=== PATIENT | male | born 1935 | race Caucasian/White ===

== ENCOUNTER 2020-03-01 07:16 | Outpatient (REF) | payer MEDICARE, BC, SELFPAY | END 2020-03-01 07:17 | disposition home or self-care (01) | LOC: HO.LAB 07:16 | PROVIDERS: Visit Provider Internal Medicine | DX: Z20.828 Contact with and (suspected) exposure to other viral communicable diseases (principal) | CPT/HCPCS: C9803; U0003 ==

== ENCOUNTER → 2020-08-07 10:45 | Outpatient (BNVA) | payer MEDICARE, BC, SELFPAY | PROVIDERS: PCP Internal Medicine; Visit Provider Urology | DX: N40.1 Benign prostatic hyperplasia with lower urinary tract symptoms (principal); N13.8 Other obstructive and reflux uropathy | CPT/HCPCS: 99212 ==

== ENCOUNTER → 2021-08-11 09:47 | Outpatient (BNVA) | payer MEDICARE, BC, SELFPAY | PROVIDERS: PCP Internal Medicine; Visit Provider Urology | DX: Z13.89 Encounter for screening for other disorder (principal) | CPT/HCPCS: Q3014 ==

== ENCOUNTER → 2022-08-10 10:46 | Outpatient (BNVA) | payer MEDICARE, BC, SELFPAY | PROVIDERS: PCP Internal Medicine; Visit Provider Urology | DX: R97.20 Elevated prostate specific antigen [PSA] (principal); N40.1 Benign prostatic hyperplasia with lower urinary tract symptoms; N13.8 Other obstructive and reflux uropathy; Z79.01 Long term (current) use of anticoagulants; Z79.899 Other long term (current) drug therapy | CPT/HCPCS: 99212 ==

== ENCOUNTER 2023-09-27 09:46 | Outpatient (AMB) | payer MEDICARE, BC, SELFPAY ==
--- NOTE | 2023-09-27 10:06 | MHC.OFFVIS ---
Intake Visit Reasons: 1Y PSA(SET) Intake Note: Patient is Present for Follow Up PSA Urology Medication: Finasteride Antibiotic Allergies: None Blood Thinners:Apixaban Allergies No Known Allergies Allergy (Verified 09/27/23 10:06) Medication List - Last Reconciled 09/27/23 by Sourav Goldman MD allopurinol 300 mg PO DAILY apixaban 2.5 mg PO BID blood pressure test kit-large As directed finasteride 5 mg PO DAILY 90 days levothyroxine 125 mcg PO DAILY olmesartan 20 mg PO DAILY rosuvastatin 20 mg PO BEDTIME spironolactone 25 mg PO DAILY HPI Comments Details: Duncan GONZALEZ is a very pleasant male. He is a patient of Dr Persaud. He is seen for the following urologic conditions. - lower urinary tract symptoms Yearly review Remains on finasteride WOLF tight sphincter, 1+ prostate Elevated PSA/Abnormal WOLF: He presents for further evaluation of elevated PSA Current management is observation. Laboratory investigations include a total PSA evaluation 08/11 4.5 02/10 5.1 08/12 7.8 - 08/13 1.6, 08/14 1.5, 08/15 1.9, 09/15 2.1 Individualized Prostate Cancer Risk Calculator 5-10% high risk, Would like to continue with observation and understands and accepts the risks of a possible delay in diagnosis, Discussed use of 5AR to help differentiate prostate cancer from benign disease. He would like to try this and understands the small risk associated with a delay in diagnosis. Overall symptoms are mild. Therapeutic plan will be follow PSA in 12 months FORMERLY [facility] Medical History Hyperlipidemia Thyroid disease Benign prostatic hyperplasia with lower urinary tract symptoms Feeling of incomplete bladder emptying Elevated PSA Surgical History No pertinent past surgical history Family History Father No problems noted. Mother No problems noted. Social History Alcohol intake: never Review of Systems Const Denies chills and Denies fever(s) Card Reports no additional complaints and Denies syncope Resp Denies cough GI Denies abdominal pain and Denies heartburn Reports as per HPI and Denies change in libido Neuro Denies syncope Psych Denies change in libido Endo Denies change in libido Physical Exam Const General: cooperative, healthy appearing, comfortable and no acute distress Orientation/consciousness: patient oriented x3 HEENT Face and sinus: Yes normal facial exam Mouth: moist mucous membranes Neck Neck: Yes normal visual inspection, Yes full ROM and Yes trachea midline Chest Chest palpation & inspection: normal inspection of the chest Resp Effort & Inspection: normal respiratory effort, able to speak in complete sentences and no respiratory distress GI Inspection: Yes normal to inspection Back/Spine/Pelvis Cervical Spine: normal cervical lordosis Thoracic/Lumbar Spine: thoracic and lumbar spine normal to inspection Skin General skin exam: no rashes or lesions noted Neuro General: patient oriented x3, gait normal, tone normal and moves all extremities Extrem General: Yes normal to inspection and Yes capillary refill normal Assessment & Plan Assessment & Plan (1) BPH w urinary obs/LUTS: Code(s): N40.1 - Benign prostatic hyperplasia with lower urinary tract symptoms; N13.8 - Other obstructive and reflux uropathy Category: Medical (2) Elevated PSA: Code(s): R97.20 - Elevated prostate specific antigen [PSA] Category: Medical Plan Twelve month follow-up PSA Orders: Orders Prostate Specific Antigen 364 Days N13.8 - Other obstructive and reflux uropathy, N40.1 - Benign prostatic hyperplasia with lower urinary tract symptoms Patient Instructions: Imaging studies, laboratory and physical exam results were discussed and reviewed in detail. No major barriers to patient understanding were identified. An opportunity to ask questions regarding the treatment plan was provided. All questions were answered. The patient expressed understanding and agreement with the above treatment plan. The patient is aware they should contact our office by phone for worsening of their current condition or the appearance of new urologic symptoms. Compliance is encouraged with any medications and followup testing that is ordered. It is a privilege to participate in the urologic care of your patient. If you have any questions or concerns regarding treatment for the above conditions, or other urologic issues, please do not hesitate to contact me. The office telephone contact is [phone]. This note is constructed using voice recognition software. While every effort has been made to ensure accuracy paint pourer errors may have been included. Yours sincerely, Dr Sourav Goldman MD, [facility] - Urology Providers of Expert, Compassionate Care for the Genitourinary System Coding Level of Care Code Est Pt Level 4 (05271) Diagnoses BPH w urinary obs/LUTS N40.1; N13.8 Elevated PSA R97.20
== END 2023-09-27 10:41 | disposition home or self-care (01) ==
LOC: HO.HUSH 09:46
PROVIDERS: PCP Internal Medicine; Visit Provider Urology
DX: N40.1 Benign prostatic hyperplasia with lower urinary tract symptoms (principal); N13.8 Other obstructive and reflux uropathy; R97.20 Elevated prostate specific antigen [PSA]
CPT/HCPCS: 99213

== ENCOUNTER → 2023-09-27 09:46 | Outpatient (BNVA) | payer MEDICARE, BC, SELFPAY | PROVIDERS: PCP Internal Medicine; Visit Provider Urology | DX: N40.1 Benign prostatic hyperplasia with lower urinary tract symptoms (principal); N13.8 Other obstructive and reflux uropathy; R97.20 Elevated prostate specific antigen [PSA] | CPT/HCPCS: 99212 ==

== ENCOUNTER 2024-09-27 09:56 | Outpatient (AMB) | payer MEDICARE, BC, SELFPAY ==
--- NOTE | 2024-09-27 10:01 | A.OFFVIS_ITS ---
Intake Visit Reasons: 1y/PSA Intake Note: Patient is Present for 1Y Follow Up PSA Urology Medication: Finasteride,ALLOPURINOL Antibiotic Allergies: None Blood Thinners:Apixaban Executive Assistant To General Counsel Required: No Allergies No Known Allergies Allergy (Verified 09/27/24 10:03) HPI Comments Details: Duncan GONZALEZ is a very pleasant male. He is a patient of Dr Persaud. He is seen for the following urologic conditions. 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 - Prostate enlargement discussed, impacting urinary function. - Finasteride used to manage urinary stream and prostate size with noted effectiveness. - Urinary frequency tied to meal timings, indicating regular bowel movements. Elevated PSA/Abnormal WOLF: He presents for further evaluation of elevated PSA Current management is observation. Laboratory investigations include a total PSA evaluation 08/11 4.5 02/10 5.1 08/12 7.8 - 08/13 1.6, 08/14 1.5, 08/15 1.9, 09/15 2.1, 10/17 2.4 Individualized Prostate Cancer Risk Calculator 5-10% high risk, Would like to continue with observation and understands and accepts the risks of a po ssible delay in diagnosis, Discussed use of 5AR to help differentiate prostate cancer from benign disease. He would like to try this and understands the small risk associated with a delay in diagnosis. Overall symptoms are mild. Therapeutic plan will be follow PSA in 12 months FORMERLY [facility] Medical History Hyperlipidemia Thyroid disease Benign prostatic hyperplasia with lower urinary tract symptoms Feeling of incomplete bladder emptying Elevated PSA Surgical History No pertinent past surgical history Family History Father No problems noted. Mother No problems noted. Social History Alcohol intake: never Review of Systems Const Denies chills and Denies fever(s) Card Reports no additional complaints and Denies syncope Resp Denies cough GI Denies abdominal pain and Denies heartburn Reports as per HPI and Denies change in libido Neuro Denies syncope Psych Denies change in libido Endo Denies change in libido Physical Exam Const General: cooperative, healthy appearing, comfortable and no acute distress Orientation/consciousness: patient oriented x3 HEENT Face and sinus: Yes normal facial exam Mouth: moist mucous membranes Neck Neck: Yes normal visual inspection, Yes full ROM and Yes trachea midline Chest Chest palpation & inspection: normal inspection of the chest Resp Effort & Inspection: normal respiratory effort, able to speak in complete sentences and no respiratory distress GI Inspection: Yes normal to inspection Back/Spine/Pelvis Cervical Spine: normal cervical lordosis Thoracic/Lumbar Spine: thoracic and lumbar spine normal to inspection Skin General skin exam: no rashes or lesions noted Neuro General: patient oriented x3, gait normal, tone normal and moves all extremities Extrem General: Yes normal to inspection and Yes capillary refill normal Assessment & Plan Assessment & Plan (1) BPH w urinary obs/LUTS: Code(s): N40.1 - Benign prostatic hyperplasia with lower urinary tract symptoms; N13.8 - Other obstructive and reflux uropathy Category: Medical (2) Elevated PSA: Code(s): R97.20 - Elevated prostate specific antigen [PSA] Category: Medical Plan Plan 1. Ingrown Toenail Post-operative care provided post-surgery. Monitor for healing with focus on pain relief. 2. Sciatic Nerve Pain Manage with physical therapy and pain relief measures to enhance leg mobility and decrease discomfort. 3. Retrograde Ejaculation Continue Finasteride therapy to manage prostatic symptoms, with understanding of benign nature of retrograde ejaculation. Discussion Notes I engaged the patient in a detailed discussion of his recent medical concerns. We reviewed the surgical intervention for the ingrown toenail and the expected post-operative care. For his sciatic nerve pain, we discussed non-invasive management through physical therapy tailored to improve mobility and reduce pain in the affected leg. Concerning retrograde ejaculation, I clarified the physiological reasons behind the condition, attributing it to prostatic enlargement, explaining that while unusual, it is generally harmless. The use of Finasteride was affirmed in managing urinary symptoms effectively. Potential side effects of ongoing treatment were discussed, and the patient expressed understanding and agreement. Patient Instructions - Monitor the surgical site for the ingrown toenail and follow provided wound care instructions. - Engage in recommended exercises or therapy to alleviate sciatic nerve pain. - Continue taking prescribed Finasteride as directed to manage urinary flow effectively. - Recognize the benign nature of retrograde ejaculation and proceed with urin ation as needed. - Contact me if any unusual symptoms or concerns arise. Orders: Orders Prostate Specific Antigen 12 Months R97.20 - Elevated prostate specific antigen [PSA] Patient Instructions: This note is constructed using voice recognition software. While every effort has been made to ensure accuracy chief crew scheduler errors may have been included. Imaging studies, laboratory and physical exam results were discussed and review ed in detail. No major barriers to patient understanding were identified. An opportunity to ask questions regarding the treatment plan was provided. All questions were answered. The patient expressed understanding and agreement with the above treatment plan. The patient is aware they should contact our office by phone for worsening of their current condition or the appearance of new urologic symptoms. Compliance is encouraged with any medications and followup testing that is ordered. It is a privilege to participate in the urologic care of your patient. If you have any questions or concerns regarding treatment for the above conditions, or other urologic issues, please do not hesitate to contact me. The office telephone contact is [phone]. Sincerely, Dr Sourav Goldman MD, [facility] - Urology Compassionate Specialist Care for the Genitourinary System Coding Level of Care Code Est Pt Level 4 (52389) Complex EM visit Add On G2211 Diagnoses BPH w urinary obs/LUTS N40.1; N13.8 Elevated PSA R97.20
--- OUTSIDE RECORDS SUMMARY | 2024-09-27 11:25 | XMS_ITS | Clinical Summary ---
Author Organization [facility] Address [address] [place] [phone] Phone Care Team Providers Care Oil Paint Shader Name Role Phone Jhonathan Persaud MD Primary Care Provider Allergies No known active allergies Medications allopurinol (ZYLOPRIM) 300 MG tablet Take 1 tablet by mouth 1 (one) time each day Active apixaban (ELIQUIS) 2.5 MG tablet Take 1 tablet by mouth 2 (two) times a day Active cholecalciferol (VITAMIN D-3 SUPER STRENGTH) 50 MCG (2000 UT) tablet Take 1 tablet by mouth 1 (one) time each day Active finasteride (PROSCAR) 5 MG tablet Take 1 tablet by mouth 1 (one) time each day Active levothyroxine (SYNTHROID, LEVOTHROID) 125 MCG tablet Take 1 tablet by mouth 1 (one) time each day Active cyanocobalamin 2000 MCG tablet Take 2,000 mcg by mouth 1 (one) time each day Active Flaxseed, Linseed, (Flax Seed Oil) 1000 MG capsule Take 1,000 mg by mouth 1 (one) time each day Active rosuvastatin (CRESTOR) 20 MG tablet TAKE 1 TABLET ONCE DAILY 90 tablet 3 4 Active spironolactone (ALDACTONE) 25 MG tabletIndicatio ns:Hypertension Take 1 tablet (25 mg total) by mouth 1 (one) time each day 90 tablet 3 5 Active spironolactone (ALDACTONE) 25 MG tabletIndicatio ns:Hypertension TAKE 1 TABLET ONCE DAILY 90 tablet 3 4 09/06/19 25 Discontinu ed(Reorder (does not appear on AVS)) Active Problems Problem Noted Date Diagnosed Date Hyperkalemia 03/09/2022 Hypertension 08/25/2020 Stage 3a chronic kidney disease 08/25/2020 Edema 08/25/2020 Obesity 08/25/2020 Gout, not otherwise specified 08/25/2020 Proteinuria, not otherwise specified 08/25/2020 Hematuria, not otherwise specified 08/25/2020 Dyslipidemia 08/25/2020 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 Cyst of kidney 08/25/2020 Obstructive sleep apnea syndrome 08/25/2020 Atrial fibrillation, not otherwise specified 06/2020 Resolved Problems Problem Noted Date Diagnosed Date Resolved Date Acute nontraumatic kidney injury 08/25/2020 03/06/2023 Encounters Date Type Department Care Team Description 09/05/2024 10:40 AM EDT Office Visit [facility] [address] [phone] Chris Sofia MD Stage 3a chronic kidney disease (HCC) (Primary Dx); Secondary hyperaldosteronism (HCC); Proteinuria, not otherwise specified; Hypertension; Hyperkalemia; Hematuria, not otherwise specified; Gout, not otherwise specified; Localized edema; Dyslipidemia; Cyst of kidney; Atrial fibrillation, not otherwise specified (HCC) 09/03/2024 Orders Only [facility] [address] [phone] Chris Sofia MD Stage 3a chronic kidney disease (HCC); Secondary hyperaldosteronism (HCC); Proteinuria, not otherwise specified; Hypertension; Hyperkalemia; Hematuria, not otherwise specified; Gout, not otherwise specified 08/23/2024 Orders Only [facility] [address] [phone] Chris Sofia MD from Last 3 Months Immunizations Immunization Administration Dates Next Due Pneumococcal Conjugate 13-Valent 01/23/2013 Zoster 12/27/2012 Family History Medical History Relation Comments Hypertension Father Hypertension Mother Hypertension Sibling Relation Status Comments Father Mother Sibling Social History Tobacco Use Types Packs/Day Years Used Date Smoking Tobacco: Never Smokeless Tobacco: Never Alcohol Use Standard Drinks/Week Comments No 0 (1 standard drink = 0.6 oz pur e alcohol) Sex and Gender Information Value Date Recorded Sex Assigned at Not on file Legal Sex Male 4:57 PM EST Gender Identity Not on file Sexual Orientation Not on file Last Filed Vital Signs Vital Sign Reading Time Taken Comments Blood Pressure 124/80 09/05/2024 10:25 AM EDT Pulse 88 09/05/2024 10:25 AM EDT Temperature - - Respiratory Rate - - Oxygen Saturation 98% 09/05/2024 10:25 AM EDT Inhaled Oxygen Concentration - - Weight 104 kg (229 lb 8 oz) 09/05/2024 10:25 AM EDT Height 180.3 cm (5' 11 ) 03/06/2024 11:48 AM EST Body Mass Index 32.01 03/06/2024 11:48 AM EST Plan of Treatment Upcoming Encounters Date Type Department Care Team (Late st Contact Info) Description 03/07/2025 11:00 AM EST [facility] [address] [phone] Chris Sofia MD [address] [phone] Health Maintenance Due Date Last Done Comments Pneumococcal Vaccine: 50+ Ye ars (2 of 2 - PPSV23, PCV20, or PCV21) 03/20/2013 01/23/2013 Influenza Vaccine (Season Ended) 2024 Pneumococcal Vaccine: Peds ( 0 to 5 Years) and At-Risk Patients (6 to 49 Years) Discontinued 01/23/2013 Hepatitis B Vaccine Aged Out No longe r eligible based on patient's age to complete this topic Procedures Procedure Name Priority Date/Time Associated Diagnosis Comments PTH, INTACT Routine 08/23/2024 2:57 PM EDT MAGNESIUM Routine 08/23/2024 2:57 PM EDT PHOSPHATE ( PHOSPHORUS) Routine 08/23/2024 2:57 PM EDT URIC ACID Routine 08/23/2024 2:57 PM EDT VITAMIN D 25 HYDROXY Routine 08/23/2024 2:57 PM EDT PROTEIN / CREATININE RATIO, URINE Routine 08/23/2024 2:57 PM EDT COMPREHENSIVE METABOLIC PANEL Routine 08/23/2024 2:57 PM EDT CBC AND DIFFERENTIAL Routine 08/23/2024 2:57 PM EDT from Last 3 Months Results * Protein, Total, Random Urine w/Creatinine (Protein/Creat Ratio) (08/23/2024 2:57 PM EDT) Creatinine, Ur 135.0 Not Estab. mg/dL [facility] Protein, Ur 10.8 Not Estab. mg/dL [facility] Urine Protein/Creatin ine Ratio 80 0 - 200 mg/g creat [facility] 08/23/2024 2:57 PM EDT 08/23/2024 us Crhis Sofia MD LAB URINE ORDERABLES Final Re sult [facility] [address] [place] [phone] * Vitamin D 25 Hydroxy (08/23/2024 2:57 PM EDT) Vitamin D, 25-OH, Total 73.2 30.0 - 100.0 ng/mL [facility] Comment: Vitamin D deficiency has been defined by the [place] [employer] and an Endocrine Society practice guideline as a level of serum 25-OH vitamin D less than 20 ng/mL (1,2). The Endocrine Society went on to further define vitamin D insufficiency as a level between 21 and 29 ng/mL (2). 1. IOM ([place] [employer]). 2010. Dietary reference ?? intakes for calcium and D. [place]: The ?? National [employer]. 2. Laura MF, Génesis VAN, Vanessa CERVANTES, et al. ?? Evaluation, treatment, and prevention of vitamin D ?? deficiency: an Endocrine Society clinical practice ?? guideline. JCEM. 2010; 96(7):1911-30. 08/23/2024 2:57 PM EDT 08/23/2024 Chris Sofia MD LAB BLOOD ORDERABLES Final Re sult [facility] [address] [place] [phone] * CBC and Differential (08/23/2024 2:57 PM EDT) WBC 7.7 3.4 - 10.8 x10E3/uL [facility] RBC 4.79 4.14 - 5.80 x10E6/uL [facility] Hemoglobin 15.0 13.0 - 17.7 g/dL [facility] Hematocrit 44.6 37.5 - 51.0 % [facility] MCV 93 79 - 97 fL [facility] MCH 31.3 26.6 - 33.0 pg [facility] MCHC 33.6 31.5 - 35.7 g/dL [facility] RDW 12.7 11.6 - 15.4 % [facility] Platelets 245 150 - 450 x10E3/uL [facility] Neutrophils Relative 50 Not Estab. % [facility] Lymphocytes Relative 36 Not Estab. % [facility] Monocytes 10 Not Estab. % [facility] Eosinophils Relative 3 Not Estab. % [facility] Basophils Relative 1 Not Estab. % [facility] Neutrophils Absolute 3.9 1.4 - 7.0 x10E3/uL [facility] Lymphocytes Absolute 2.8 0.7 - 3.1 x10E3/uL [facility] Monocytes Absolute 0.7 0.1 - 0.9 x10E3/uL [facility] Eosinophils Absolute 0.3 0.0 - 0.4 x10E3/uL [facility] Basophils Absolute 0.1 0.0 - 0.2 x10E3/uL [facility] Immature Granulocytes 0 Not Estab. % [facility] Immature Grans (Absolute) 0.0 0.0 - 0.1 x10E3/uL [facility] 08/23/2024 2:57 PM EDT 08/23/2024 Chris Sofia MD LAB BLOOD ORDERABLES Final Re sult Performing Organization Address City/[facility]/ZIP Co de Phone Number [facility] [address] [place] [phone] * Uric Acid (08/23/2024 2:57 PM EDT) Uric Acid 5.5 3.8 - 8.4 mg/dL [facility] Comment:Therapeutic target f or gout patients: <6.0 08/23/2024 2:57 PM EDT 08/23/2024 us Chris Sofia MD LAB BLOOD ORDERABLES Final Re sult Performing Organization Address City/[facility]/ZIP Co de Phone Number [facility] [address] [place] [address] * (ABNORMAL) Phosphorus (08/23/2024 2:57 PM EDT) Phosphorus 4.3(H) 2.8 - 4.1 mg/dL [facility] 08/23/2024 2:57 PM EDT 08/23/2024 Chris Sofia MD LAB BLOOD ORDERABLES Final Re sult Performing Organization Address City/[facility]/ZIP Co de Phone Number [facility] [address] [place] [phone] * PTH, Intact (08/23/2024 2:57 PM EDT) PTH 26 15 - 65 pg/mL [facility] 08/23/2024 2:57 PM EDT 08/23/2024 Chris Sofia MD LAB BLOOD ORDERABLES Final Re sult Performing Organization Address [facility] de Phone Number [facility] [address] [place] [address] * Magnesium (08/23/2024 2:57 PM EDT) Magnesium 2.0 1.6 - 2.3 mg/dL [facility] 08/23/2024 2:57 PM EDT 08/23/2024 Chris Sofia MD LAB BLOOD ORDERABLES Final Re sult Performing Organization Address [facility] de Phone Number [facility] [address] [place] [phone] * (ABNORMAL) Comprehensive Metabolic Panel (08/23/2024 2:57 PM EDT) Glucose 95 70 - 99 mg/dL [facility] BUN 23 8 - 27 mg/dL [facility] Creatinine 1.56(H) 0.76 - 1.27 mg/dL [facility] eGFR CKD-EPI CR 2020 43(L) >59 mL/min/1.7 3 [facility] BUN/Creatinine Ratio 15 10 - 24 [facility] Sodium 138 134 - 144 mmol/L [facility] Potassium 4.9 3.5 - 5.2 mmol/L [facility] Chloride 100 96 - 106 mmol/L [facility] Bicarbonate (CO2) 22 20 - 29 mmol/L [facility] Calcium 9.7 8.6 - 10.2 mg/dL [facility] Total Protein 6.5 6.0 - 8.5 g/dL [facility] Albumin 4.0 3.7 - 4.7 g/dL [facility] Globulin 2.5 1.5 - 4.5 g/dL [facility] Total Bilirubin 0.6 0.0 - 1.2 mg/dL [facility] Alkaline Phosphatase 74 44 - 121 IU/L [facility] AST (SGOT) 17 0 - 40 IU/L [facility] ALT (SGPT) 13 0 - 44 IU/L [facility] 08/23/2024 2:57 PM EDT 08/23/2024 us Chris Sofia MD LAB BLOOD ORDERABLES Final Re sult [facility] [address] [place] [phone] from Last 3 Months Insurance (Home) [address] [place] [id number] [facility] Medicare (Home) [address] [place] [address] [facility] Medicare Care Teams Oil Paint Shader Relationship Specialty Start Date End Date Jhonathan Persaud MD [address] [facility] [address] PCP - General 05/05/20
== END 2024-09-27 10:51 | disposition home or self-care (01) ==
LOC: HO.HUSH 09:57
PROVIDERS: PCP Internal Medicine; Visit Provider Urology
DX: N40.1 Benign prostatic hyperplasia with lower urinary tract symptoms (principal); N13.8 Other obstructive and reflux uropathy; R97.20 Elevated prostate specific antigen [PSA]
CPT/HCPCS: 99214; G2211

== ENCOUNTER → 2024-09-27 09:56 | Outpatient (BNVA) | payer MEDICARE, BC, SELFPAY | PROVIDERS: PCP Internal Medicine; Visit Provider Urology | DX: N40.1 Benign prostatic hyperplasia with lower urinary tract symptoms (principal); N13.8 Other obstructive and reflux uropathy; R97.20 Elevated prostate specific antigen [PSA] | CPT/HCPCS: 99212 ==